=== PATIENT | female | born 1960 | race Caucasian/White ===

== ENCOUNTER 2022-06-22 08:07 | Day surgery (SDC) | payer BC, SELFPAY ==
--- NOTE | 2022-06-21 11:03 | HO.ANESPROP2 ---
Documented by User: Marjan Allen NP 06/21/22 11:04 HPI - Anesthesia Eval Consult details Narrative: 62yo F for Colonoscopy [facility] Past Medical History Medical History Diabetic hemochromatosis DM (diabetes mellitus), type 2 GERD (gastroesophageal reflux disease) HTN (hypertension) Mitral stenosis Murmur Nephrolithiasis Obstructive sleep apnea Urinary incontinence Surgical History Surgical History H/O colonoscopy H/O partial thyroidectomy H/O: hysterectomy History of cholecystectomy History of esophagogastroduodenoscopy (EGD) Hx of appendectomy Social History Social History Patient Tobacco Use Status: Never used Tobacco Are you DNR?: No Advance Directives: No Advance Directives Information Provided: Yes Recently lost weight without trying: No Nutrition Risks: No Nutritional Risk Meds Allergies Allergy/AdvReac Type Severity Reaction Status Date / Time shellfish derived Allergy Unknown Verified 06/21/22 11:01 caffeine AdvReac [place] Verified 06/21/22 11:01 Home Medications Medication Instructions Recorded Confirmed Last Taken Type aspirin 81 mg PO DAILY 06/21/22 06/21/22 06/14/22 History atenolol 25 mg tablet 1 tab PO DAILY 06/21/22 06/21/22 06/22/22 History cholecalciferol (vitamin D3) 50 1 cap PO DAILY 06/21/22 06/21/22 Unknown History mcg (2,000 unit) capsule dulaglutide 0.75 mg/0.5 mL 1 syringe subcut QWEEK 06/21/22 06/21/22 06/17/22 History subcutaneous pen injector (Trulicity) glyburide 5 mg-metformin 500 mg 1.5 tab PO BID 06/21/22 06/21/22 Unknown History tablet levothyroxine 50 mcg tablet 1 tab PO DAILY 06/21/22 06/21/22 06/22/22 History Exam Exam Date and Time: June 21, 2022 1103 Assessment and Plan Assessment Anesthesia Assessment: Chart Reviewed Documented by User: Dimitrios Pagan MD 06/22/22 09:13 [facility] Past Medical History Medical History Diabetic hemochromatosis DM (diabetes mellitus), type 2 GERD (gastroesophageal reflux disease) HTN (hypertension) Mitral stenosis Murmur Nephrolithiasis Obstructive sleep apnea Urinary incontinence Family History Family history of problems with anesthesia: No Surgical History Surgical History H/O colonoscopy H/O partial thyroidectomy H/O: hysterectomy History of cholecystectomy History of esophagogastroduodenoscopy (EGD) Hx of appendectomy History of Problems with Anesthesia: No Social History Social History Patient Tobacco Use Status: Never used Tobacco Are you DNR?: No Advance Directives: No Advance Directives Information Provided: Yes Recently lost weight without trying: No Nutrition Risks: No Nutritional Risk Meds Allergies Allergy/AdvReac Type Severity Reaction Status Date / Time shellfish derived Allergy Unknown Verified 06/21/22 11:01 caffeine AdvReac Gitters Verified 06/21/22 11:01 Home Medications Medication Instructions Recorded Confirmed Last Taken Type aspirin 81 mg PO DAILY 06/21/22 06/21/22 06/14/22 History atenolol 25 mg tablet 1 tab PO DAILY 06/21/22 06/21/22 06/22/22 History cholecalciferol (vitamin D3) 50 1 cap PO DAILY 06/21/22 06/21/22 Unknown History mcg (2,000 unit) capsule dulaglutide 0.75 mg/0.5 mL 1 syringe subcut QWEEK 06/21/22 06/21/22 06/17/22 History subcutaneous pen injector ([place]) glyburide 5 mg-metformin 500 mg 1.5 tab PO BID 06/21/22 06/21/22 Unknown History tablet levothyroxine 50 mcg tablet 1 tab PO DAILY 06/21/22 06/21/22 06/22/22 History Exam Airway Mallampati Class: III TM Dist: >3cm Neck ROM: Full Loose/Missing/Broken Teeth: No Heart: [id number] Lungs: cta b/l Assessment and Plan Assessment Anesthesia Assessment: Anesthesia Plan Discussed Final Anesthetic Review Family History of Problems with Anesthesia: No History of Problems with Anesthesia: No NPO: Yes ASA Class: III Final Preanesthetic Review: No Changes in Pt Med Stat, Meds/Allgs Chart Reviewed, Consent Obtained/Reviewed and Anes Risks/Benef Reviewed Patient Risk: Intermediate Procedure Risk: Intermediate Assessment/Block/Sedation in SS: Assess/Block/Sedation-SS Anesthetic Plan Anesthetic Plan: MAC: and Agree w/ Assess. and Plan Disposition: Standard PACU
[2022-06-22 08:51] VITALS: BP 156/65; PULSE 73; RESP 18; TEMP 36.4; O2SAT 97; BMI 39.6
[2022-06-22 08:52] LABS: Glucose, Whole Blood 132 mg/dL (60-115)
[2022-06-22] MEDS: Lactated Ringers 1,000 ML 100 ML IVCONT (09:05)
--- NOTE | 2022-06-22 09:47 | MHC.SHP ---
Pre-Procedural Eval Section A Date of Service: 06/22/22 Section B Chief Complaint: screening Details of Present Illness: see H&P no changes Relevant Family History (Specify if Yes): No Relevant Social History: None Present Medications: see Short Stay Collaborative assessment Medical History: No relevant PMH History of Previous Operations: No relevant previous surgery Allergies: Allergies Allergy/AdvReac Type Severity Reaction Status Date / Time shellfish derived Allergy Unknown Verified 06/21/22 11:01 caffeine AdvReac Gitters Verified 06/21/22 11:01 Review of Systems Sugical H&P ROS: Negative: Constitution, Cardiovascular, Respiratory, Neurological, Psychiatric, Hem-Onc, Allergic/Immunologic, Gastrointestinal, Genitourinary, Musculoskeletal, Integumentary, Endocrine and Eyes/Ears/Nose/Throat Exam Surgical H&P Exam: Normal: HEENT, Normal: Heart, Normal: Lungs, Normal: Extremities, Normal: Abdomen, Normal: Skin and Normal: Neurological Plan Diagnosis/Plan: Unchanged I have reviewed the history and physical and performed a pertinent physical examination on my patient. No changes have occurred unless specified.
[2022-06-22 10:25] VITALS: BP 101/57; PULSE 86; RESP 16; TEMP 36.6; O2SAT 94
--- NOTE | 2022-06-22 10:26 | P.BOP_ITS ---
Brief Operative Note Date of Service: 06/22/22 Pre-op diagnosis: screening Post-op diagnosis: same Procedure: colonoscopy Surgeon: Siva Cotton Anesthesia: MAC Was an Licensed Occupational Therapy Assistant used for this Procedure?: No Estimated blood loss (mL): 0 Pathology: none sent Condition: stable Disposition: PACU
[2022-06-22 10:40] VITALS: BP 125/77; PULSE 79; RESP 16; TEMP 36.6; O2SAT 95
--- NOTE | 2022-06-23 05:58 | OP_ITS ---
SURGEON: Siva Cotton MD INDICATIONS: Colon cancer screening. PREOPERATIVE DIAGNOSIS: POSTOPERATIVE DIAGNOSIS: PROCEDURE PERFORMED: Colonoscopy to the terminal ileum. ESTIMATED BLOOD LOSS: COMPLICATIONS: ANESTHESIA: Monitored anesthesia care. ASSISTANTS: SPECIMENS: DESCRIPTION OF PROCEDURE: History and physical performed. The risks and benefits of the procedure were explained to the patient. Informed consent was obtained. The patient was placed in the left lateral decubitus position. A digital rectal exam was performed and was found to be normal. The Olympus pediatric video colonoscope was introduced into the rectum and advanced to the cecum without difficulty. The cecum was identified by transillumination, palpation, and identification of the ileocecal valve. Examination was performed. The scope was removed. She tolerated the procedure well and was taken to recovery area in stable condition. Abdominal wall pressure was used to assist in advancement of the scope. The procedure was done on 06/22/2022. FINDINGS: The terminal ileum was examined and appeared normal. The visualized colonic mucosa was normal. There was some liquid stool in the descending and sigmoid colon that was washed and suctioned. The sigmoid was rather tortuous. No polyps were identified. Retroflexed examination showed small internal hemorrhoids. IMPRESSION: Normal colonoscopy. RECOMMENDATION: 1. Follow up as needed. 2. Repeat colonoscopy is recommended in 10 years for average risk individuals. MD MEET Ely/GIOVANNI / [id number] MTDD
== END 2022-06-22 11:06 | disposition home or self-care (01) ==
PROVIDERS: PCP Internal Medicine; Visit Provider Internal Medicine Gastroenterology
PROC: 0DJD8ZZ Inspection of Lower Intestinal Tract, Via Natural or Artificial Opening Endoscopic (ICD-10-PCS; CPT 45378; principal; 2022-06-22 09:40)
DX: Z12.11 Encounter for screening for malignant neoplasm of colon (principal); K64.8 Other hemorrhoids; E83.118 Other hemochromatosis; E11.9 Type 2 diabetes mellitus without complications; I10 Essential (primary) hypertension; K21.9 Gastro-esophageal reflux disease without esophagitis; K76.0 Fatty (change of) liver, not elsewhere classified; G47.33 Obstructive sleep apnea (adult) (pediatric); Z79.84 Long term (current) use of oral hypoglycemic drugs; Z79.82 Long term (current) use of aspirin; Z79.899 Other long term (current) drug therapy; Z87.442 Personal history of urinary calculi; Z90.49 Acquired absence of other specified parts of digestive tract; Z85.42 Personal history of malignant neoplasm of other parts of uterus
CPT/HCPCS: 45378; 82947